=== PATIENT | female | born 1980 | race Caucasian/White ===

== ENCOUNTER 2021-02-16 07:15 | Day surgery (SDC) | payer MEDICARE ==
[2021-02-16] VITALS (8 sets, daily range): BP systolic 101–136; BP diastolic 52–86
[~2021-02-16] VITALS: Ht 172.7 cm; Wt 102.1 kg
[~2021-02-16 07:15] MED LIST: 0.9%NACL 1000ML 1,000 ML IV ONE; CETI-89 PO; DICY20TA11 PO; ERGO400T7 PO; LEVO75TA4 PO; LIPA1CAP PO; ONDA4TAB4 PO; PANT40TA PO; URSO300C4 PO; VENL25 PO; [UNRECOGNIZED DRUG - CODE] MC
[2021-02-16] MEDS ORDERED: PROPOFOL 10 MG/ML 20ML VIAL IV ONE (10:51)
[2021-03-01] MEDS ORDERED: LOPE2 PO (13:23)
[2021-03-01] MEDS ORDERED: LIPA1CAP PO (13:23)
[2021-03-01] MEDS ORDERED: vitamin d PO (13:23)
== END 2021-02-16 11:50 | disposition home or self-care (01) ==
LOC: DAH 07:15 → SUH 07:15
PROVIDERS: ATTEND Internal Medicine Gastroenterology
DX: K86.1 Other chronic pancreatitis (principal); Z20.822 Contact with and (suspected) exposure to COVID-19; K31.89 Other diseases of stomach and duodenum; K29.50 Unspecified chronic gastritis without bleeding; R19.7 Diarrhea, unspecified; K64.0 First degree hemorrhoids; E03.9 Hypothyroidism, unspecified; D64.9 Anemia, unspecified; F41.9 Anxiety disorder, unspecified; F32.9 Major depressive disorder, single episode, unspecified; M19.90 Unspecified osteoarthritis, unspecified site; N99.4 Postprocedural pelvic peritoneal adhesions; Z88.8 Allergy status to other drugs, medicaments and biological substances; Z90.49 Acquired absence of other specified parts of digestive tract; Z90.710 Acquired absence of both cervix and uterus; Z98.891 History of uterine scar from previous surgery; Z98.84 Bariatric surgery status; Z87.442 Personal history of urinary calculi; Z79.899 Other long term (current) drug therapy; Z98.890 Other specified postprocedural states
CPT/HCPCS: 43237; 43239; 87635; 88305; 88342; A4215 ×2; A4221; A4222; A4223; A4620; A4657; A4663; C9803; J2704; J7030

== ENCOUNTER 2021-02-19 15:12 | Emergency (ER) | payer MEDICARE ==
[~2021-02-19] VITALS: Ht 170.2 cm; Wt 102.1 kg
[~2021-02-19 15:12] MED LIST changes: -0.9%NACL 1000ML 1,000 ML IV ONE
[2021-02-19] MEDS ORDERED: PROMETHAZINE HCL 25 MG/ML 1ML AMPULE IM ONE ×2 (15:13→16:00)
[2021-02-19 15:48] LABS: BASOPHILS % (AUTO) 0.7 % (0.0-5.0); EOSINOPHILS % (AUTO) 1.2 % (0.0-8.0); HEMATOCRIT 40.3 % (36-48); LYMPHOCYTES % (AUTO) 26.9 % (21.0-51.0); MEAN CORPUSCULAR HEMOGLOBIN 28.7 pg (27.0-33.0); MEAN CORPUSCULAR HGB CONC 31.8 g/dL (32.0-36.0); MEAN CORPUSCULAR VOLUME 90.4 fL (79-99); MONOCYTES % (AUTO) 4.1 % (3.0-13.0); NEUTROPHILS % (AUTO) 66.7 % (40.0-77.0); PLATELET COUNT (AUTO) 293 K/uL (130-400); RED BLOOD CELL COUNT(AUTO) 4.46 MIL/uL (4.00-5.50); RED CELL DISTRIBUTION WIDTH 12.1 % (11.0-15.5); WHITE BLOOD COUNT (AUTO) 9.1 K/uL (4.8-10.8)
[2021-02-19 15:58] LABS: CREATININE 0.8 mg/dL (0.5-1.5); POTASSIUM 3.9 mmol/L (3.5-5.1)
[2021-02-19] MEDS ORDERED: FENTANYL CITRATE PF 50 MCG/1 ML 2ML VIAL IVP ONE (16:00)
[2021-02-19 16:02] LABS: ALBUMIN 3.7 g/dL (3.5-5.0); BILIRUBIN,TOTAL 0.4 mg/dL (0.2-1.0); TOTAL PROTEIN, SERUM 7.6 g/dL (6.0-8.3)
[2021-02-19 16:14] LABS: APPEARANCE,URINE Clear (CLEAR); BILIRUBIN,URINE Negative (NEGATIVE); COLOR,URINE Yellow (YELLOW); GLUCOSE, URINE (UA) Negative (NEGATIVE); KETONES,URINE Negative (NEGATIVE); LEUKOCYTE ESTERASE ,URINE Moderate (NEGATIVE); NITRATE,URINE Negative (NEGATIVE); OCCULT BLOOD,URINE Negative (NEGATIVE); PH,URINE 5.5 (5.0-8.0); PROTEIN,URINE Negative (NEGATIVE); UROBILINOGEN,URINE 0.2 mg/dL (0.2-1.0)
[2021-02-19 16:19] LABS: HCG,QUAL RESULT NEGATIVE (NEGATIVE)
[2021-02-19 16:55] LABS: BACTERIA,URINE Few /HPF (None Seen); MUCUS,URINE Few LPF (None Seen); SQUAMOUS EPITHELIAL CELL,UR Few /HPF (0-2)
[2021-02-19] MEDS ORDERED: IOHEXOL-350 75 ML VIAL IV ONE (17:21)
[2021-02-19] MEDS ORDERED: FENTANYL CITRATE PF 50 MCG/1 ML 2ML VIAL ONE (18:16)
[2021-02-19 18:27] VITALS: BP 128/73
[2021-02-19 19:45] VITALS: BP 114/68
== END 2021-02-19 20:06 | disposition home or self-care (01) ==
LOC: EDH 15:12
DX: R10.10 Upper abdominal pain, unspecified (principal); R11.0 Nausea; Z98.890 Other specified postprocedural states; Z88.8 Allergy status to other drugs, medicaments and biological substances; Z79.899 Other long term (current) drug therapy
CPT/HCPCS: 36415; 74177; 80053; 81001; 81025; 82150; 83605; 83690; 85025; 87088; 96372; 96374; 99285; J2550; J3010; Q9967

== ENCOUNTER 2021-03-02 05:58 | Day surgery (SDC) | payer MEDICARE ==
[~2021-03-02] VITALS: Ht 170.2 cm; Wt 99.8 kg
[~2021-03-02 05:58] MED LIST changes: -DICY20TA11 PO; -ERGO400T7 PO; +ETHYL ALCOHOL 5 ML VIAL IJ SCH; +LOPE2 PO; -ONDA4TAB4 PO; -[UNRECOGNIZED DRUG - CODE] MC; +vitamin d PO
[2021-03-02] MEDS ORDERED: 0.9%NACL 1000ML 1,000 ML IV ONE (06:24)
[2021-03-02 06:47] VITALS: BP 127/83
[2021-03-02] MEDS ORDERED: BUPIVACAINE/PF 0.25% 30ML VIAL IJ SCH ×2 (07:00→07:30)
[2021-03-02] MEDS ORDERED: LIDOCAINE HCL 400MG/20ML VIAL ONE (07:09)
[2021-03-02] MEDS ORDERED: PROPOFOL 10 MG/ML 20ML VIAL IV ONE ×2 (07:09→08:09)
[2021-03-02] MEDS ORDERED: TRIAMCINOLONE ACETONIDE 40 MG/ML 1ML VIAL INJ SCH ×2 (07:30)
[2021-03-02 08:20] VITALS: BP 106/62
[2021-03-02 08:25] VITALS: BP 114/67
[2021-03-02 08:30] VITALS: BP 116/66
[2021-03-02 08:35] VITALS: BP 121/78
== END 2021-03-02 08:50 | disposition home or self-care (01) ==
LOC: ENDO 05:58 → DAH 05:58 → ENDO 08:50
PROVIDERS: ATTEND Internal Medicine
DX: K86.1 Other chronic pancreatitis (principal); Z20.822 Contact with and (suspected) exposure to COVID-19; K64.0 First degree hemorrhoids; R19.7 Diarrhea, unspecified; E66.9 Obesity, unspecified; E03.9 Hypothyroidism, unspecified; F41.9 Anxiety disorder, unspecified; F32.9 Major depressive disorder, single episode, unspecified; M19.90 Unspecified osteoarthritis, unspecified site; Z98.890 Other specified postprocedural states; Z98.891 History of uterine scar from previous surgery; Z98.84 Bariatric surgery status; Z90.49 Acquired absence of other specified parts of digestive tract; Z90.710 Acquired absence of both cervix and uterus; Z80.0 Family history of malignant neoplasm of digestive organs; Z68.34 Body mass index [BMI] 34.0-34.9, adult; Z91.040 Latex allergy status; Z91.013 Allergy to seafood; Z88.8 Allergy status to other drugs, medicaments and biological substances
CPT/HCPCS: 43253; 87635; A4215 ×2; A4216; A4221; A4222; A4223; A4606; A4620; A4657; A4663; C9803; J2704 ×2; J3301; J3490 ×2; J7030

== ENCOUNTER 2021-07-27 08:25 | Day surgery (SDC) | payer MEDICARE ==
[~2021-07-27] VITALS: Ht 170.2 cm; Wt 98.3 kg
[~2021-07-27 08:25] MED LIST changes: +0.9%NACL 1000ML 1,000 ML IV ONE; +BUPIVACAINE/PF 0.25% 10ML VIAL IJ PRN; +ETHYL ALCOHOL 5 ML VIAL IJ PRN; -ETHYL ALCOHOL 5 ML VIAL IJ SCH
[2021-07-27 08:29] VITALS: BP 131/74
[2021-07-27] MEDS ORDERED: PROPOFOL 10 MG/ML 20ML VIAL IV ONE (11:55)
[2021-07-27] MEDS ORDERED: TRIAMCINOLONE ACETONIDE 10MG/1ML 5ML VIAL IJ SCH ×2 (12:00→13:00)
[2021-07-27] MEDS ORDERED: BUPIVACAINE/PF 0.25% 50ML VIAL IJ SCH (12:00)
[2021-07-27 12:15] VITALS: BP 97/54
[2021-07-27 12:20] VITALS: BP 102/53
[2021-07-27 12:25] VITALS: BP 107/61
[2021-07-27 12:30] VITALS: BP 106/58
[2021-07-27] MEDS ORDERED: ONDANSETRON 4MG INJ ONE (12:31)
[2021-07-27 12:35] VITALS: BP 107/61
[2021-07-27] MEDS ORDERED: ONDANSETRON 4MG INJ IVP ONE (13:30)
== END 2021-07-27 12:55 | disposition home or self-care (01) ==
LOC: DAH 08:25 → ENDO 08:25
PROVIDERS: ATTEND Internal Medicine
DX: K86.1 Other chronic pancreatitis (principal); Z20.822 Contact with and (suspected) exposure to COVID-19; R19.7 Diarrhea, unspecified; K31.84 Gastroparesis; I10 Essential (primary) hypertension; F32.9 Major depressive disorder, single episode, unspecified; E03.9 Hypothyroidism, unspecified; M19.90 Unspecified osteoarthritis, unspecified site; Z90.710 Acquired absence of both cervix and uterus; Z90.49 Acquired absence of other specified parts of digestive tract; Z98.891 History of uterine scar from previous surgery; Z98.890 Other specified postprocedural states; Z98.84 Bariatric surgery status; Z80.0 Family history of malignant neoplasm of digestive organs
CPT/HCPCS: 43253; 87635; A4215 ×2; A4221; A4223; A4606; A4620; A4649; A4663; C9803; J2405; J2704; J3301; J3490 ×2; J7030